=== PATIENT | male | born 1995 | race African-American/Black ===

== ENCOUNTER 2024-05-10 20:11 | Inpatient (IN) ==
[2024-05-10] MEDS ORDERED: LORazepam 2 mg VIAL 1 ml ONE (20:35)
[2024-05-10] MEDS ORDERED: Haloperidol 5 mg/ml SDV IV/IM 5 MG/ML AMP ONE (20:42)
[2024-05-11] MEDS ORDERED: Lorazepam PYXIS KEY PRN (01:43)
[2024-05-11] MEDS ORDERED: LORazepam 2 mg VIAL 1 ml ONE (01:44)
[2024-05-11] MEDS: LORazepam 2 mg VIAL 1 ml IM ONE (01:45)
[2024-05-11 02:07] LABS: ABS Basophils 0.1 10^3/uL (0.0-0.1); ABS Eosinophils 0.1 10^3/uL (0.0-0.5); ABS Lymphocytes 4.1 10^3/uL (1.0-4.8); ABS Neutrophils 5.6 10^3/uL (1.5-7.6); ABS Nucleated RBC 0.01 10^3/ul; Hemoglobin 15.1 g/dL (13.2-16.3); Mean Corpuscular Hemoglobin 31.2 pg (27-33); Mean Corpuscular Volume 89.1 fL (80-97); Mean Platelet Volume 8.7 fL (7.5-11.2); Nucleated Red Blood Cells % 0.1 %/100WBC (0.0-0.8); Platelet Count 253 10^3/uL (150-450); Red Blood Count 4.83 10^6/uL (4.06-5.63); Red Cell Distribution Width 12.7 % (12-17); White Blood Count 10.9 10^3/uL (3.6-10.2)
[2024-05-11] MEDS: Thiamine 100 MG/ML 2 ml VIAL 100 MG, Folic Acid IV 1 MG, Multiple Vitamin IV ADULT 10 M... IV ONE (02:48)
[2024-05-11] MEDS: LORazepam 2 mg VIAL 1 ml IV PUSH SCH (02:50)
[2024-05-11 03:14] LABS: ALT 42 U/L (7-52); AST 65 U/L (13-39); Acetaminophen < 15 mcg/mL; Albumin 5.1 g/dL (3.2-5.2); Albumin/Globulin Ratio 2.3 (1-3); Alcohol, S < 13 mg/dL (<13); Alkaline Phosphatase 55 U/L (35-149); Anion Gap 15 mmol/L (2-16); Blood Urea Nitrogen 15 mg/dL (6-24); CO2 Carbon Dioxide 25 mmol/L (22-32); Calcium 9.9 mg/dL (8.6-10.3); Chloride 100 mmol/L (101-111); Creatinine, Serum 1.14 mg/dL (0.67-1.17); Globulin 2.2 g/dL (2-4); Glucose 104 mg/dL (70-100); Magnesium 2.3 mg/dL (1.9-2.7); Salicylate < 2.50 mg/dL (<30); Sodium 140 mmol/L (135-145); Total Bilirubin 1.4 mg/dL (0.2-1.0); Total Protein 7.3 g/dL (6.4-8.9); eGFR CKD-EPI 89.8 (>60)
[2024-05-11 03:35] LABS: Creatine Kinase 1457 U/L (10-223)
[2024-05-11] MEDS: Lactated Ringers 1000 ml BAG 1,000 ML IV ONE (04:31)
[2024-05-11] MEDS: Lactated Ringers 1000 ml BAG 1,000 ML IV SCH (09:36)
[2024-05-11] MEDS: Enoxaparin 40 MG/0.4 ML SYR SUBCUT SCH (09:46)
[2024-05-11 09:52] LABS: Urine Appearance Clear; Urine Bilirubin Negative (Negative); Urine Blood Negative (Negative); Urine Color Yellow; Urine Glucose Negative (Negative); Urine Ketones 1+ (Negative); Urine Nitrite Negative (Negative); Urine Protein Negative (Negative); Urine Specific Gravity 1.023 (1.002-1.030); Urine Urobilinogen Negative (Negative); Urine pH 6.5 (5.0-8.0)
[2024-05-11 10:14] LABS: Urine Benzodiazepine Screen None Detected (None Detect); Urine Cannabinoids Screen Presumptive Positive (None Detect); Urine Opiates Screen None Detected (None Detect)
[2024-05-12 09:48] LABS: Albumin 4.5 g/dL (3.2-5.2); Calcium 9.5 mg/dL (8.6-10.3); Creatinine, Serum 0.93 mg/dL (0.67-1.17); Globulin 2.2 g/dL (2-4); Potassium 4.1 mmol/L (3.5-5.0); Total Bilirubin 0.6 mg/dL (0.2-1.0); Total Protein 6.7 g/dL (6.4-8.9); eGFR CKD-EPI 114.7 (>60)
[2024-05-12] MEDS: Lactated Ringers 1000 ml BAG 1,000 ML IV ONE ×2 (11:20→13:14)
[2024-05-12] MEDS ORDERED: Al Hydrox/Mg Hydrox/Simet LIQ 30 ML UDC PO PRN (19:52)
[2024-05-13 08:05] LABS: HDL Cholesterol 28.5 mg/dL
[2024-05-13] MEDS: Nicotine PATCH 21 MG/24 HR PATCH TRANSDERM SCH (09:08)
[2024-05-13] MEDS: Vitamin THERAPEUTIC TAB PO SCH (09:09)
[2024-05-13 16:58] LABS: ABS Eosinophils 0.1 10^3/uL (0.0-0.5); ABS Lymphocytes 1.7 10^3/uL (1.0-4.8); ABS Monocytes 0.5 10^3/uL (0.0-1.1); ABS Neutrophils 3.4 10^3/uL (1.5-7.6); Eosinophil % 1.3 %; Hematocrit 41.7 % (38-53); Hemoglobin 14.6 g/dL (13.2-16.3); Mean Corpuscular Hemoglobin 31.5 pg (27-33); Mean Corpuscular Hgb Conc 34.9 g/dL (31-36); Mean Corpuscular Volume 90.4 fL (80-97); Mean Platelet Volume 8.5 fL (7.5-11.2); Nucleated Red Blood Cells % 0.1 %/100WBC (0.0-0.8); Platelet Count 240 10^3/uL (150-450); Red Blood Count 4.62 10^6/uL (4.06-5.63); Red Cell Distribution Width 12.5 % (12-17); White Blood Count 5.8 10^3/uL (3.6-10.2)
[2024-05-14 08:45] LABS: Albumin 4.8 g/dL (3.2-5.2); Calcium 9.8 mg/dL (8.6-10.3); Creatinine, Serum 0.98 mg/dL (0.67-1.17); Globulin 2.4 g/dL (2-4); Potassium 4.2 mmol/L (3.5-5.0); Total Bilirubin 0.4 mg/dL (0.2-1.0); Total Protein 7.2 g/dL (6.4-8.9); eGFR CKD-EPI 107.7 (>60)
[2024-05-16] MEDS: Nicotine GUM 2MG FRUIT FLAVOR PO PRN (16:45)
[2024-05-17] MEDS: Nicotine GUM 2MG FRUIT FLAVOR PO ONE (07:51)
[2024-05-21] MEDS: Nicotine PATCH 21 MG/24 HR PATCH TRANSDERM SCH (14:39)
[2024-05-22 11:05] VITALS: BP 139/90
== END 2024-05-23 12:00 | disposition home or self-care (01) | DRG 776 ==
LOC: EDHOLD 20:11 → ED 20:11 → SUATTDRO 05-11 05:01 → BSU 05-12 20:05 → SUATTDRO 05-12 20:10 → BSU 05-12 20:23
PROVIDERS: ADMIT Internal Medicine; ATTEND Student in an Organized Health Care Education/Training Program